=== PATIENT | female | born 1955 | race Caucasian/White ===

== ENCOUNTER 2016-12-04 14:28 | Emergency (ER) | payer BC, OTHER ==
--- NOTE | 2016-12-04 14:39 | Emergency Department Record ---
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 No bleeding or pain. She is unsure regarding the date of her immunizations. 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 No recent illness. MD Complaint: Other -: Minutes(s) Consistency: Constant Improves with: Nothing Worsens with: Nothing Associated Symptoms: Denies other symptoms - Related Data Home Medications Medication Instructions Recorded Confirmed Last Taken Aspirin [Aspirin EC] 81 mg PO DAILY 12/04/14 12/04/14 Unknown Fenofibrate Nanocrystallized 145 mg PO DAILY 12/04/14 12/04/14 Unknown [Tricor] Allergies Allergy/AdvReac Type Severity Reaction Status Date / Time clarithromycin [From Biaxin] Allergy Severe HYPERSENSIT Unverified 05/21/15 12: 58 IVITY Sulfa (Sulfonamide Allergy Intermediate HIVES, Unverified 05/21/15 12:58 Antibiotics) swelling Review of Systems Constitutional: Denies: Chills, Fever, Malaise, Weakness Eyes: Denies: Eye discharge ENT: Denies: Congestion Respiratory: Denies: Cough Cardiovascular: Denies: Chest pain Endocrine: Denies: Fatigue Gastrointestinal: Denies: Abdominal pain, Diarrhea, Nausea, Vomiting Genitourinary: Denies: Dysuria, Urgency Musculoskeletal: Denies: Arthralgia, Myalgia Skin: Denies: Bruising, Change in color, Rash Neurological: Denies: Headache Psychiatric: Denies: Anxiety Physical Exam - General General Appearance: Alert, Oriented x3, Cooperative - Head Head exam: Atraumatic, Normal inspection - ENT ENT exam: Normal exam Ear exam: Normal external inspection Nasal Exam: Normal inspection Mouth exam: Normal external inspection - Neck Neck exam: Normal inspection - Rectal Rectal exam: Deferred - exam: Deferred - Neurological Neurological exam: Alert, Oriented X3 - Psychiatric Psychiatric exam: Normal affect, Normal mood - Skin Skin exam: Dry, Intact, Normal color, Warm Course - Reevaluation(s) Reevaluation #1: The patient's tetanus was updated The patient had a prior hepB positive titer. NO further treatment needed Rapid HIV on the patient is pending. 12/04/16 15:19 Reevaluation #2: Rapid HIV was negative on the patient and the source 12/04/16 16:02 Disposition Disposition: Discharge Clinical Impression: Needlestick injury accident with exposure to body fluid Disposition: Home, Self-Care Condition: (1) Good Instructions: Needle Stick Injuries (ED) Additional Instructions: Follow up with employee health as scheduled Time of Disposition: 16:03 Quality - Quality Measures Quality Measures: N/A - Blood Pressure Screening View Details: Yes Blood Pressure Classification: Pre-Hypertensive BP Reading Systolic Measurement: 128 Diastolic Measurement: 85 Screening for High Blood Pressure: < Pre-Hypertensive BP, F/U Documented > [ G8950] Pre-Hypertensive Follow-up Interventions: Referral to alternative/primary care provider.
[2016-12-04] MEDS ORDERED: TETANUS AND DIPHTHERIA PF 0.5 ML SYR IM ONE (15:04)
[2016-12-04] MEDS: Diph,Pert(Acell),Tet Vac 0.5 ML SYR IM ONE (15:16)
[2016-12-04 15:24] LABS: AMPHETAMINE SCREEN URINE NOT DETECTED; BARBITURATE SCREEN URINE NOT DETECTED; BENZODIAZEPINE SCREEN URINE NOT DETECTED; COCAINE SCREEN URINE NOT DETECTED; METHADONE SCREEN URINE NOT DETECTED; METHAMPHETAMINE SCREEN NOT DETECTED; OPIATE SCREEN URINE NOT DETECTED; OXYCODONE SCREEN URINE NOT DETECTED; PHENCYCLIDINE SCREEN URINE NOT DETECTED; PROPOXYPHENE SCREEN URINE NOT DETECTED; THC SCREEN URINE NOT DETECTED; TRICYCLIC ANTIDEPRESSANT SCRN NOT DETECTED
[2016-12-05 13:28] LABS: HEP A AB IGM Nonreactive (Nonreactive); HEPATITIS B CORE ANTIBODY,IGM Nonreactive (Nonreactive); HEPATITIS B SURFACE ANTIGEN Nonreactive (Nonreactive); HEPATITIS C VIRUS ANTIBODY Nonreactive (Nonreactive)
== END 2016-12-04 16:22 | disposition home or self-care (01) ==
LOC: ER 14:28
DX: S60.311A Abrasion of right thumb, initial encounter (principal); W46.0XXA Contact with hypodermic needle, initial encounter; W45.8XXA Other foreign body or object entering through skin, initial encounter; W22.8XXA Striking against or struck by other objects, initial encounter; Y93.F9 Activity, other caregiving; Y99.0 Civilian activity done for income or pay
CPT/HCPCS: 80305; 87390; 90715; 99283

== ENCOUNTER 2017-01-28 15:16 | Emergency (ER) | payer BC, OTHER ==
[2017-01-28] MEDS ORDERED: ASPIRIN 81 MG CHEWABLE TABLET PO ONE (15:25)
[2017-01-28] MEDS ORDERED: MORPHINE SULFATE 5 MG/ML PFS IVP ONE (15:25)
[2017-01-28] MEDS ORDERED: NITROGLYCERIN 0.4MG SL TABLET #25 BTL SL PRN (15:25)
[2017-01-28] MEDS ORDERED: MAGNESIUM HYDROXIDE/AL HYDROX 30 ML, LIDOCAINE VISC 2% 200 MG PO ONE ×2 (15:28)
[2017-01-28] MEDS ORDERED: ONDANSETRON HCL IV 4 MG/2 ML VIAL IVP ONE ×2 (15:33→17:28)
[2017-01-28 15:44] LABS: BASO % 0.2 % (0-6); EOS % 2.3 % (0-6); GRAN % 78.8 % (47-80); HEMATOCRIT 45.1 % (35.0-47.0); LYMPH % 10.3 % (16-45); MEAN CELL VOLUME 94.5 fl (81-97); MEAN CORPUSCULAR HEMOGLOBIN 31.4 pg (27-33); MEAN CORPUSCULAR HGB CONC 33.3 g/dl (32-36); MEAN PLATELET VOLUME 12.7 fl (7.4-10.4); MONO % 8.4 % (0-9); PLATELET COUNT 153 K/uL (130-400); RED BLOOD COUNT 4.77 M/uL (3.80-5.40); RED CELL DISTRIBUTION WIDTH 13.1 % (11.5-14.5); WHITE BLOOD COUNT W/O DIFF 10.6 K/uL (4.2-12.2)
[2017-01-28 16:09] LABS: ALB/GLOB RATIO 1.4 (1.1-1.8); ALBUMIN 4.1 g/dL (4.0-5.0); ALKALINE PHOSPHATASE 179 U/L (35-104); ALT/SGPT 516 U/L (<33); AST/SGOT 175 U/L (10.0-35.0); BLOOD UREA NITROGEN 17 mg/dL (8-23); CKMB 1.3 ng/mL (<3.77); CREATINE PHOSPHOKINASE 59 U/L (26-192); CREATININE 0.6 mg/dL (0.5-0.9); EST GLOMERULAR FILTRATION RATE > 60 mL/min; GLUCOSE,RANDOM 206 mg/dL (74-109); NTpro B-NATRIURETIC PEPTIDE 96.86 pg/mL (<125); TOTAL PROTEIN 7.1 g/dL (6.6-8.7)
[2017-01-28 16:11] LABS: TROPONIN I < 0.30 ng/mL (0.00-0.300)
--- NOTE | 2017-01-28 16:56 | Emergency Department Record ---
History of Present Illness - General Chief Complaint: Chest Pain Stated Complaint: LCHEST PAIN Time Seen by Provider: 01/28/17 15:24 Source: Patient Mode of Arrival: Ambulatory Limitations: No limitations - History of Present Illness Initial Comments: pt started having severe cp ,epigastric pain yesterday that got better and then got worse today. it goes through to her back. she has a hx of dvts and hi triglycerides. MD Complaint: Chest pain Onset/Timin -: Days(s) Onset: After eating Pain Location: Epigastric Severity: Severe Severity scale (1-10): 10 Quality: Aching, Sharp Consistency: Constant Improves With: Nothing Worsens With: Inspiration, Movement Anginal Symptoms: Nausea, Vomiting Treatments Prior to Arrival: None - Related Data Allergies Allergy/AdvReac Type Severity Reaction Status Date / Time clarithromycin [From Biaxin] Allergy Severe HYPERSENSIT Verified 01/28/17 15:43 IVITY Sulfa (Sulfonamide Allergy Intermediate HIVES, Verified 01/28/17 15:43 Antibiotics) swelling Travel Screening - Travel/Exposure Within Last 30 Days Have you traveled within the last 30 days?: No - Travel/Exposure Within Last Year Have you traveled outside the [place] in the last year?: No - Additonal Travel Details Have you been exposed to anyone with a communicable illness?: No - Travel Symptoms Symptom Screening: None Review of Systems Reviewed: No additional complaints except as noted below Constitutional: Reports: As per HPI. Denies: Chills, Fever, Malaise, Night sweats, Weakness, Weight change Eyes: Reports: As per HPI. Denies: Eye discharge, Eye pain, Photophobia, Vision change ENT: Reports: As per HPI. Denies: Congestion, Dental pain, Ear pain, Epistaxis , Hearing loss, Throat pain Respiratory: Reports: As per HPI. Denies: Cough, Dyspnea, Hemoptysis, Stridor, Wheezes Cardiovascular: Reports: As per HPI. Denies: Arrhythmia, Chest pain, Dyspnea on exertion, Edema, Murmurs, Orthopnea, Palpitations, Paroxysmal nocturnal dyspnea, Rheumatic Fever, Syncope Endocrine: Reports: As per HPI. Denies: Fatigue, Heat or cold intolerance, Polydipsia, Polyuria Gastrointestinal: Reports: As per HPI. Denies: Abdominal pain, Constipation, Diarrhea, Hematemesis, Hematochezia, Melena, Nausea, Vomiting Genitourinary: Reports: As per HPI. Denies: Abnormal menses, Discharge, Dyspareunia, Dysuria, Frequency, Hematuria, Incontinence, Retention, Urgency Musculoskeletal: Reports: As per HPI. Denies: Arthralgia, Back pain, Gout, Joint swelling, Myalgia, Neck pain Skin: Reports: As per HPI. Denies: Bruising, Change in color, Change in hair/ nails, Lesions, Pruritus, Rash Neurological: Reports: As per HPI. Denies: Abnormal gait, Confusion, Headache, Numbness, Paresthesias, Seizure, Tingling, Tremors, Vertigo, Weakness Psychiatric: Reports: As per HPI. Denies: Anxiety, Auditory hallucinations, Depression, Homicidal thoughts, Suicidal thoughts, Visual hallucinations Hematological/Lymphatic: Reports: As per HPI. Denies: Anemia, Blood Clots, Easy bleeding, Easy bruising, Swollen glands Past Medical History - SOCIAL HISTORY Smoking Status: Never smoker Alcohol Use: None Drug Use: None - RESPIRATORY Hx Respiratory Disorders: No - CARDIOVASCULAR Hx Cardio Disorders: Yes Hx Deep Vein Thrombosis: Yes Comment:: high cholesterol - NEURO Hx Neuro Disorders: No - GI Hx GI Disorders: Yes Hx Abdominal Pain: Yes Hx Diverticulitis: Yes - Hx Genitourinary Disorders: No - ENDOCRINE Hx Endocrine Disorders: No - MUSCULOSKELETAL Hx Musculoskeletal Disorders: No - PSYCH Hx Psych Problems: No - HEMATOLOGY/ONCOLOGY Hx Hematology/Oncology Disorders: No Family Medical History Any Significant Family History?: No Physical Exam - General General Appearance: Alert, Oriented x3, Cooperative, Moderate distress - Head Head exam: Normal inspection - Eye Eye exam: Normal appearance, PERRL, EOMI Pupils: Normal accommodation - ENT ENT exam: Normal exam, Mucous membranes moist, Normal external ear exam, Normal orophraynx Ear exam: Normal external inspection. negative: External canal tenderness Nasal Exam: Normal inspection. negative: Discharge, Sinus tenderness Mouth exam: Normal external inspection, Tongue normal Teeth exam: Normal inspection. negative: Dental caries Throat exam: Normal inspection. negative: Tonsillar erythema, Tonsillar exudate - Neck Neck exam: Normal inspection, Full ROM. negative: Tenderness - Respiratory Respiratory exam: Normal lung sounds bilaterally. negative: Respiratory distress - Cardiovascular Cardiovascular Exam: Regular rate, Normal rhythm, Normal heart sounds - GI/Abdominal GI/Abdominal exam: Soft, Normal bowel sounds, Tenderness - Rectal Rectal exam: Deferred - exam: Deferred - Extremities Extremities exam: Normal inspection, Full ROM, Normal capillary refill. negative: Tenderness - Back Back exam: Reports: Normal inspection, Full ROM. Denies: Muscle spasm, Rash noted, Tenderness - Neurological Neurological exam: Alert, CN II-XII intact, Normal gait, Oriented X3 - Psychiatric Psychiatric exam: Normal affect, Normal mood - Skin Skin exam: Dry, Intact, Normal color, Warm Course Vital Signs 01/28/17 15:28 Temperature 98.2 F Pulse Rate 92 H Respiratory 16 Rate Blood Pressure 134/117 Pulse Ox 95 - Reevaluation(s) Reevaluation #1: 01/28/17 17:14 pt feels better. d/w dr lowe Reevaluation #2: 01/28/17 17:24 pt remains pain free at this time Medical Decision Making - Lab Data Result diagrams: 01/28/17 15:10 01/28/17 15:10 Lab Results 01/28/17 01/28/17 01/28/17 Range/Units 15:10 15:10 15:10 WBC 10.6 (4.2-12.2) K/uL RBC 4.77 (3.80-5.40) M/uL Hgb 15.0 (11.6-16.0) gm/dl Hct 45.1 (35.0-47.0) % MCV 94.5 (81-97) fl MCH 31.4 (27-33) pg MCHC 33.3 (32-36) g/dl RDW 13.1 (11.5-14.5) % Plt Count 153 (130-400) K/uL MPV 12.7 H (7.4-10.4) fl Gran % 78.8 (47-80) % Lymphocytes % 10.3 L (16-45) % Monocytes % 8.4 (0-9) % Eosinophils % 2.3 (0-6) % Basophils % 0.2 (0-6) % APTT 27.10 (24.5-39.1) SECONDS Sodium 138 (136-145) mmol/L Potassium 3.8 (3.4-4.5) mmol/L Chloride 99 (98-107) mmol/L Carbon Dioxide 27.0 (22-29) mmol/L Anion Gap 12.0 (7-16) BUN 17 (8-23) mg/dL Creatinine 0.6 (0.5-0.9) mg/dL Estimated GFR > 60 mL/min Random Glucose 206 H (74-109) mg/dL Calcium 9.2 (8.8-10.2) mg/dL Total Bilirubin 6.70 H (0.2-1.0) mg/dL AST 175 H (10.0-35.0) U/L ALT 516 H (<33) U/L Alkaline Phosphatase 179 H (35-104) U/L Creatine Kinase 59 (26-192) U/L CK-MB (CK-2) 1.3 (<3.77) ng/mL Troponin I < 0.30 (0.00-0.300) ng/mL NT-Pro-B Natriuret Pep 96.86 (<125) pg/mL Total Protein 7.1 (6.6-8.7) g/dL Albumin 4.1 (4.0-5.0) g/dL Globulin 3.0 (1.4-4.8) gm/dL Albumin/Globulin Ratio 1.4 (1.1-1.8) Disposition Disposition: Transfer Clinical Impression: Choledocholithiasis Disposition: Acute Care Hospital Transfer Transfer To: [facility] Reason For Transfer: needs surgeon and gi, ercp Accepting Physician: chrissy Time Discussed w/Accepting Physician: 17:24 Forms: Patient Portal Access Quality - Quality Measures Quality Measures: N/A - Blood Pressure Screening Does Patient Have Any of the Following: No Blood Pressure Classification: Hypertensive Reading Systolic Measurement: 134 Diastolic Measurement: 117 Screening for High Blood Pressure: < Pre-Hypertensive BP, F/U Documented > [ G8950] Pre-Hypertensive Follow-up Interventions: Follow-up with rescreen every year.
[2017-01-28] MEDS ORDERED: ERTAPENEM SODIUM 1 G in 0.9 % SODIUM CHLORIDE 100ML 100 ML IVPB ONE (17:22)
[2017-01-28] MEDS ORDERED: HYDROMORPHONE HCL 1MG/ML **SYRINGE IVP ONE (17:27)
--- NOTE | 2017-01-29 09:26 | CT ANGIOGRAM REPORT ---
EXAM: EMERGENCY CTA OF THE CHEST WITH CONTRAST WITH POST PROCESSING HISTORY: CHEST PAIN. TECHNIQUE: CTA of the chest was performed following the intravenous administration of 94 ml of Omnipaque 350 as the IV contrast. Post processing on an independent workstation was performed with coronal and sagittal 3D MIP series obtained. Comparison: No prior chest CT or chest x-ray. FINDINGS: The history does not specify whether this study is being performed for possible pulmonary emboli or aortic dissection. There is no central PE identified. Peripheral pulmonary arterial branches are not optimally opacified to evaluate for the presence or absence of PE. No thoracic aortic aneurysm or dissection is seen. No pleural or pericardial effusion evident. There is a relatively large nodule/mass in the right lobe of the thyroid measuring about 3.3 cm in AP x 1.8 cm in transverse diameters. This is indeterminate and malignancy cannot be excluded. Correlation with physical exam is suggested and follow-up nonemergent thyroid ultrasound may be useful. Cholelithiasis noted. No additional findings to suggest acute cholecystitis evident. On the lower most images a low attenuation mass is partially seen in the mid portion of the right kidney. This measures about 2.4 cm in size and was seen in its entirety on a prior abdomen CT of 01/08/14 where they measured 2.6 cm, and has a CT density of 13 consistent with a right renal cyst. There does appear to be a soft tissue density in the common duct today not seen previously containing a small calcification. The soft tissue density measures about 7 mm in diameter and likely represents a common duct calculus. There is some associated mild dilatation of the common duct above this measuring about 2.1 cm in diameter with minimal intrahepatic biliary dilatation as well. Clinical correlation as to the possibility of choledocholithiasis with common duct obstruction leading to the patient's current symptoms is suggested. Mild dependent atelectasis in both lung bases posteriorly. No pneumothorax evident. Hypertrophic spurring in the spine. There are some incidentally seen diverticula in the visualized colon, but no additional findings to suggest acute diverticulitis identified in the visualized colon. IMPRESSION: 1. NO CENTRAL PE IDENTIFIED. PERIPHERAL PULMONARY ARTERIAL TREE NOT SUFFICIENTLY OPACIFIED WITH THE CONTRAST TO EVALUATE THE PRESENT OR TO EVALUATE FOR THE PRESENCE OR ABSENCE OF PULMONARY EMBOLI. 2. NO THORACIC AORTIC ANEURYSM OR DISSECTION SEEN. 3. DEGENERATIVE CHANGE IN THE SPINE WITH A MILD THORACIC CURVE TO THE RIGHT. 4. APPROXIMATELY 2.4 CM UPPER POLE RIGHT RENAL CYST. 5. COLONIC DIVERTICULOSIS WITH NO DIVERTICULITIS EVIDENT IN THE VISUALIZED COLON. 6. CHOLELITHIASIS. THERE ALSO APPEARS TO BE A COMMON DUCT STONE WITH SOME APPARENT BILIARY DILATATION PROXIMAL TO THIS. CLINICAL CORRELATION TO THE POSSIBILITY OF CHOLEDOCHOLITHIASIS OR EVEN CHOLECYSTITIS THE CAUSE OF THE PATIENT'S CURRENT SYMPTOMS SUGGESTED. JOB NUMBER: [id number] MTDD
[2017-01-30 12:16] LABS: HEP A AB IGM Nonreactive (Nonreactive); HEPATITIS B CORE ANTIBODY,IGM Nonreactive (Nonreactive); HEPATITIS B SURFACE ANTIGEN Nonreactive (Nonreactive); HEPATITIS C VIRUS ANTIBODY Nonreactive (Nonreactive)
[2017-01-30 20:15] LABS: HEP C QUANT V LOAD Not Detected (Not Detected)
== END 2017-01-28 19:12 | disposition short-term general hospital (02) ==
LOC: ER 15:16
DX: K80.50 Calculus of bile duct without cholangitis or cholecystitis without obstruction (principal); R07.89 Other chest pain; R10.13 Epigastric pain; R11.2 Nausea with vomiting, unspecified
CPT/HCPCS: 99285 ×2; 96365; 96366; 96375; 82550; 85025; 85730; 82553; 84484; 80053; 83880; 71275; 93005; 93010; Q9967; J1335; J2405; J2270; J1170

== ENCOUNTER 2018-11-28 08:49 | Day surgery (SDC) | payer BC ==
[2018-11-28] MEDS ORDERED: PROPOFOL 10 MG/ML VIAL IV ONE (08:50)
[2018-11-28] MEDS ORDERED: MIDAZOLAM HCL 2MG/2ML VIAL IV ONE (08:50)
[2018-11-28] MEDS ORDERED: LIDOCAINE 2% MDV (20MG/ML) 20ML VIAL IV ONE (08:50)
--- NOTE | 2018-11-29 17:20 | Operative Note ---
DATE: 11/28/2018 OPERATION: COLONOSCOPY with cold forceps polypectomy x2. PREOPERATIVE DIAGNOSIS: Personal history of colon polyps and left lower quadrant pain. POSTOPERATIVE DIAGNOSES: 1. Colonic diverticulosis including sigmoid, transverse, and descending colon. 2. Transverse colon polyps x2. PROCEDURE: After informed consent was obtained from the patient, she was placed in the left lateral decubitus position in the endoscopy suite, sedated and monitored by the department of anesthesia. Digital rectal exam was unremarkable. A well-lubricated SCS900 colonoscope was inserted into the rectum and advanced to the cecum. Preparation quality was good. The cecum, cecal bulb, ileocecal valve, appendiceal orifice, and ascending colon were unremarkable. The transverse colon revealed 2 diminutive polyps each removed with a cold forceps. There were also scattered diverticula throughout the transverse, descending colon, and sigmoid colon. The rectum was unremarkable in forward and J-turn views. The endoscope was straightened, the rectal ampulla deflated, and the endoscope was removed. RECOMMENDATIONS: The patient should follow a high-fiber diet and consider use of a fiber supplement such as Citrucel or Benefiber. I would recommend repeat exam in 5 years pending tissue histology. As always, thank you for allowing me to participate in the healthcare of your patients. BRIDGET
== END 2018-11-28 10:48 | disposition home or self-care (01) ==
LOC: HOP 08:49
PROVIDERS: ATTEND Internal Medicine Gastroenterology
DX: R10.32 Left lower quadrant pain (principal); Z86.010 Personal history of colon polyps; K63.5 Polyp of colon; K57.30 Diverticulosis of large intestine without perforation or abscess without bleeding; E78.00 Pure hypercholesterolemia, unspecified

== ENCOUNTER 2018-12-26 03:17 | Emergency (ER) | payer BC ==
--- NOTE | 2018-12-26 03:31 | Emergency Department Record ---
History of Present Illness - General Chief complaint: Flank Pain Stated complaint: FLANK PAIN Time Seen by Provider: 12/26/18 03:25 Source: Patient Mode of Arrival: Ambulatory Limitations: No limitations - History of Present Illness Initial comments: 63 yo female presents to ED for evaluation of left sided flank pain symptoms that began approximately 1 hours prior to arrival. Patient reports that she was diagnosed with a UTI yesterday by her PCP, was started on antibiotics yesterday. Patient reports that her symptoms worsened this morning. Patient reports left sided abdominal pain, nausea, and vomiting as well. Patient denies history of kidney stones, denies history of health problems at her baseline. MD Complaint: Other Onset/Timin -: Hour(s) Radiation: L flank Severity: Severe Quality: Sharp, Stabbing Consistency: Constant Improves with: None Worsens with: None Patient : No - Related Data Home Medications Medication Instructions Recorded Confirmed Last Taken Aspirin 325 mg PO DAILY 12/26/18 12/26/18 12/25/18 Ovid-3/Dha/Epa/Fish Oil [Fish Oil 1 each PO DAILY 12/26/18 12/26/18 12/25/18 1,000 mg Softgel] Rosuvastatin Calcium 5 mg PO DAILY 12/26/18 12/26/18 12/25/18 Allergies Allergy/AdvReac Type Severity Reaction Status Date / Time clarithromycin [From Biaxin] Allergy Severe HYPERSENSIT Verified 01/28/17 15:43 IVITY Sulfa (Sulfonamide Allergy Intermediate HIVES, Verified 01/28/17 15:43 Antibiotics) swelling Review of Systems Constitutional: Denies: Chills, Fever, Malaise, Night sweats Eyes: Denies: Eye discharge, Eye pain ENT: Denies: Congestion, Ear pain, Epistaxis Respiratory: Denies: Cough, Dyspnea Cardiovascular: Denies: Chest pain, Dyspnea on exertion Endocrine: Denies: Fatigue, Heat or cold intolerance Gastrointestinal: Reports: Abdominal pain, Nausea, Vomiting. Denies: Constipation Genitourinary: Denies: Dysuria, Incontinence, Retention Musculoskeletal: Reports: Back pain. Denies: Arthralgia, Gout, Joint swelling Skin: Denies: Bruising, Change in color Neurological: Denies: Abnormal gait, Confusion, Headache, Seizure Psychiatric: Denies: Anxiety Hematological/Lymphatic: Denies: Anemia, Blood Clots Past Medical History - SOCIAL HISTORY Smoking Status: Never smoker Alcohol Use: None Drug Use: None - RESPIRATORY Hx Respiratory Disorders: No - CARDIOVASCULAR Hx Cardio Disorders: Yes Hx Deep Vein Thrombosis: Yes Hx Palpitations: Yes (PVCs) Comment:: high cholesterol - NEURO Hx Neuro Disorders: No - GI Hx GI Disorders: Yes Hx Abdominal Pain: Yes Hx of Polyps: Yes Comment:: diverticulosis - Hx Genitourinary Disorders: No - ENDOCRINE Hx Endocrine Disorders: No - MUSCULOSKELETAL Hx Musculoskeletal Disorders: Yes Hx Arthritis: Yes (EUGENIO knees) - PSYCH Hx Psych Problems: No - HEMATOLOGY/ONCOLOGY Hx Hematology/Oncology Disorders: No Family Medical History Any Significant Family History?: No Family Hx Comment (NOT TO BE USED IN PLACE OF ITEMS BELOW): denies Physical Exam - General General Appearance: Alert, Oriented x3, Cooperative, Moderate distress Limitations: No limitations - Head Head exam: Atraumatic, Normocephalic, Normal inspection Head exam detail: negative: Abrasion, Contusion, Rodriguez's sign, General tenderness, Hematoma, Laceration - Eye Eye exam: Normal appearance. negative: Conjunctival injection, Periorbital swelling, Periorbital tenderness, Scleral icterus - ENT Ear exam: negative: Auricular hematoma, Auricular trauma Nasal Exam: negative: Active bleeding, Discharge, Dried blood, Foreign body Mouth exam: negative: Drooling, Laceration, Muffled voice, Tongue elevation - Neck Neck exam: Normal inspection. negative: Meningismus, Tenderness - Respiratory Respiratory exam: Normal lung sounds bilaterally. negative: Rales, Respiratory distress, Rhonchi, Stridor - Cardiovascular Cardiovascular Exam: Regular rate, Normal rhythm, Normal heart sounds - GI/Abdominal GI/Abdominal exam: Soft, Tenderness, Other (Moderate TTP LUQ, LLQ on examination, no rebound/guarding symptoms are present.). negative: Rebound, Rigid - Rectal Rectal exam: Deferred - exam: Deferred - Extremities Extremities exam: Normal inspection. negative: Pedal edema, Tenderness - Back Back exam: Reports: CVA tenderness (L). Denies: CVA tenderness (R) - Neurological Neurological exam: Alert, Normal gait, Oriented X3 - Psychiatric Psychiatric exam: Anxious - Skin Skin exam: Normal color. negative: Abrasion Type of lesion: negative: abrasion Course Vital Signs 12/26/18 03:23 Pulse Rate [ 76 Pulse Ox Probe] Respiratory 24 Rate Blood Pressure 134/81 [Left Arm] Pulse Ox 97 - Reevaluation(s) Reevaluation #1: 12/26/18 04:16 Laboratory studies were reviewed and appears grossly unremarkable for an acute process. Patient will try and provide UA at this time. Pain is improved however still significant on ak-[id number]-Azevudgd 0.5 mg ordered to infuse. Reevaluation #2: 12/26/18 04:43 UA reviewed: 7-10 RBCs, otherwise negative for infection. CT imaging report is pending. Reevaluation #3: 12/26/18 04:55 CT Abdomen/Pelvis: Moderate left hydronephrosis No definite stones are seen, left ureter is decompressed. Differential includes recently passed stone vs. blood/clot in the collecting system vs. non-calcified stone. Colonic diverticulitis. Lab reports calcification found in the UA sample sent this evening, likely c/w recently passed stone. Patient was updated on all results, reports that her pain symptoms are greatly improved, still mild pain present. Will continue to observe for 30-45 minutes to ensure that her pain symptoms do not return. Reevaluation #4: 12/26/18 05:48 Patient was reassessed, rates her pain at 7/10 and appears visibly uncomfortable. Discussed transfer for urologic consultation and pain control, patient declined. Also offered to admit the patient here at [facility] for pain control, further observation despite not having urology available, patient declined. Will discharge the patient home per her request with Primrose 7.5 mg (2 tablets) with strict instructions to return to the ED for worsening/pain symptoms not improving. Patient is in agreement with the plan of care as discussed. Medical Decision Making - Lab Data Result diagrams: 12/26/18 03:30 12/26/18 03:30 Disposition Disposition: Discharge Clinical Impression: Ureteral calculus, left Disposition: Home, Self-Care Condition: (2) Stable Instructions: Kidney Stones (ED) Additional Instructions: Return to ED if your symptoms worsen or if you have any concerns. Primrose 7.5 mg as directed. Follow-up with your family doctor in 1-3 days as directed. Forms: Patient Portal Access Time of Disposition: 05:51 Quality - Quality Measures Quality Measures: N/A - Blood Pressure Screening Does Patient Have Any of the Following: No Blood Pressure Classification: Pre-Hypertensive BP Reading Systolic Measurement: 137 Diastolic Measurement: 82 Screening for High Blood Pressure: < Pre-Hypertensive BP, F/U Documented > [G8950] Pre-Hypertensive Follow-up Interventions: Referral to alternative/primary care provider.
[2018-12-26 03:35] LABS: ABSOLUTE NEUTROPHIL COUNT 4.04; BASO % 0.8 % (0-6); EOS % 5.8 % (0-6); GRAN % 50.9 % (47-80); HEMATOCRIT 46.5 % (35.0-47.0); HEMOGLOBIN 15.9 gm/dl (11.6-16.0); LYMPH % 31.4 % (16-45); MEAN CELL VOLUME 90.1 fl (81-97); MEAN CORPUSCULAR HEMOGLOBIN 30.8 pg (27-33); MEAN CORPUSCULAR HGB CONC 34.2 g/dl (32-36); MEAN PLATELET VOLUME 11.9 fl (7.4-10.4); MONO % 11.1 % (0-9); PLATELET COUNT 151 K/uL (130-400); RED BLOOD COUNT 5.16 M/uL (3.80-5.40); RED CELL DISTRIBUTION WIDTH 13.3 % (11.5-14.5); WHITE BLOOD COUNT W/O DIFF 7.9 K/uL (4.2-12.2)
[2018-12-26] MEDS: 0.9 % SODIUM CHLORIDE 1000ML 1,000 ML IV SCH (03:38)
[2018-12-26] MEDS: KETOROLAC 30 MG/ML VIAL IVP ONE (03:39)
[2018-12-26] MEDS: ONDANSETRON HCL IV 4 MG/2 ML VIAL IVP ONE (03:39)
[2018-12-26] MEDS: HYDROMORPHONE HCL 2 MG/ML VIAL IVP ONE ×2 (03:39→04:28)
[2018-12-26 03:43] LABS: BLOOD UREA NITROGEN 19 mg/dL (8-23); CREATININE 0.7 mg/dL (0.5-0.9); EST GLOMERULAR FILTRATION RATE > 60 mL/min
[2018-12-26 03:44] LABS: LIPASE 83 U/L (13-60); TOTAL PROTEIN 6.9 g/dL (6.6-8.7)
[2018-12-26 03:46] LABS: GLUCOSE,RANDOM 161 mg/dL (74-109)
[2018-12-26 03:49] LABS: ALB/GLOB RATIO 1.7 (1.1-1.8); ALBUMIN 4.3 g/dL (4.0-5.0); ALKALINE PHOSPHATASE 62 U/L (35-104); ALT/SGPT 29 U/L (<33); AST/SGOT 17 U/L (10.0-35.0)
[2018-12-26 04:32] LABS: URINE APPEARANCE CLEAR; URINE BILIRUBIN NEGATIVE (NEGATIVE); URINE BLOOD SMALL (NEGATIVE); URINE COLOR YELLOW; URINE GLUCOSE (UA) NEGATIVE (NEGATIVE); URINE KETONE NEGATIVE (NEGATIVE); URINE LEUKOCYTE ESTERASE NEGATIVE (NEGATIVE); URINE NITRITE NEGATIVE (NEGATIVE); URINE PROTEIN NEGATIVE (NEGATIVE); URINE UROBILINOGEN 0.2 E.U./dL (0.20 - 1.00)
[2018-12-26 04:40] LABS: URINE EPITHELIAL CELLS 0 - 2 (FEW); URINE WBC 0 - 2 (0-2/hpf)
[2018-12-26] MEDS: HYDROCODONE/APAP 7.5/325MG TABLET PO ONE (06:02)
--- NOTE | 2018-12-27 06:31 | CT SCAN REPORT ---
EXAM: CT SCAN ABDOMEN/PELVIS WO CONTRAST HISTORY: LEFT FLANK AND LEFT LOWER QUADRANT PAIN BEGINNING TWO HOURS AGO. HEMATURIA. PRIOR HYSTERECTOMY AND CHOLECYSTECTOMY. TECHNIQUE: Routine helical CT examination of the abdomen and pelvis is performed without oral or intravenous contrast administration. Lack of oral and IV contrast utilization limits evaluation of the bowel and solid viscera respectively. COMPARISON: CT abdomen and pelvis with contrast dated 01/08/2014. FINDINGS: There is mild dependent atelectasis in each lung base. Minor linear scarring versus atelectasis is also demonstrated within the anterior lung bases. No pleural or pericardial effusion. The heart is not enlarged. Diffuse decreased density of the liver relative to the spleen is demonstrated consistent with steatosis. There are a few small areas of sparing in the central left liver lobe. No new suspicious focal hepatic lesion. The gallbladder is surgically absent. Mild pneumobilia is present without gross biliary ductal dilatation. The spleen, pancreas, and adrenal glands are normal in appearance. There is a contour-deforming fluid density mass arising from the lateral lower pole of the right kidney consistent with a benign cyst. This measures 3.2 x 3.9 cm. On the prior examination, this measured 1.9 x 2.6 cm. The right kidney is otherwise normal in appearance. There is moderate left hydronephrosis. There is a subtle, slightly hyperdense nodule along the medial margin of the right renal collecting system pelvis. This measures 1.3 cm in maximum diameter. The left ureter is normal in caliber and there is no obstructing calculus seen. There is fat stranding in the left perinephric space anteriorly at the mid to upper kidney level. The etiology of this is uncertain. This could relate to caliceal rupture. No intra-abdominal nor retroperitoneal lymphadenopathy. There is mild diffuse atherosclerosis without aneurysmal dilatation of the abdominal aorta nor iliac arteries. The uterus is surgically absent. No pelvic mass nor lymphadenopathy. No intrinsic urinary bladder abnormality is seen though evaluation is mildly limited by incomplete distention. Mild diverticulosis is scattered throughout the colon without evidence of acute diverticulitis. The appendix is visualized and normal in appearance. No gross bowel dilatation nor bowel wall thickening. There is a small fat-filled ventral wall hernia in the midline superior to the umbilicus. This measures 1.8 x 3.1 cm. The abdominal wall defect measures approximately 1 cm in diameter. Fat density prominence is again noted within each inguinal canal consistent with lipomas or fat within small inguinal hernia sacs. Minor fat stranding is again noted near the left internal inguinal ring. No new lytic or blastic bone lesion. There are degenerative changes scattered throughout the visualized spine most pronounced at the L4-L5 level where there is mild central canal stenosis. There is redemonstration of a focus of sclerosis in the medial left iliac bone adjacent to the sacroiliac joint. This is stable and likely degenerative or a bone island. IMPRESSION: 1. MODERATE LEFT HYDRONEPHROSIS. A SUBTLE 1.3 CM INCREASED ATTENUATION NODULE IS PRESENT IN THE LEFT RENAL COLLECTING SYSTEM PELVIS. NO DEFINITE OBSTRUCTING CALCULUS AND THE LEFT URETER IS DECOMPRESSED. DIFFERENTIAL DIAGNOSIS INCLUDES A RECENTLY PASSED STONE WITH BLOOD CLOT IN THE COLLECTING SYSTEM VERSUS NONCALCIFIED STONE OR UROTHELIAL NEOPLASM. 2. COLONIC DIVERTICULOSIS WITHOUT EVIDENCE OF DIVERTICULITIS. 3. HEPATIC STEATOSIS. 4. MULTIPLE ADDITIONAL CHRONIC FINDINGS DISCUSSED ABOVE. JOB NUMBER: [id number] [facility]
== END 2018-12-26 06:05 | disposition home or self-care (01) ==
LOC: ER 03:17
DX: N13.2 Hydronephrosis with renal and ureteral calculous obstruction (principal); R11.2 Nausea with vomiting, unspecified
CPT/HCPCS: 74176; 80053; 81001; 83690; 85025; 96361; 96374; 96375; 96376; 99284; J1885; J2405; J7030